=== PATIENT | male | born 1970 | race Caucasian/White ===

== ENCOUNTER 2017-02-04 13:41 | Emergency (ER) | payer SELFPAY ==
--- NOTE | 2017-02-04 14:02 | EDM.PDOC ---
ED HPI GENERAL MEDICAL PROBLEM - General Chief Complaint: Chest Pain Stated Complaint: CHEST PAINS/LIGHT HEADEDNESS Time Seen by Provider: 02/04/17 14:52 - History of Present Illness INITIAL COMMENTS - FREE TEXT/NARRATIVE: HISTORY AND PHYSICAL: History of present illness: Patient is 46-year-old white male history diabetes and hypertension presents with concern of left-sided chest pain he's had this for 24-48 hours states it's worse when his shirt touches this area of his chest he denies associated shortness of breath nausea vomiting or palpitations he states he has felt weaker he gets similar episode in the past and the last 2 years a complete cardiac workup including stress test that was negative he was treated for H. pylori. He denies melena hematochezia patient does complain of frequent eructation Review of systems: As per history of present illness and below otherwise all systems reviewed and negative. Past medical history: As per history of present illness and as reviewed below otherwise noncontributory. Surgical history: As per history of present illness and as reviewed below otherwise noncontributory. Social history: No reported history of drug or alcohol abuse. Family history: As per history of present illness and as reviewed below otherwise noncontributory. Physical exam: HEENT: Atraumatic, normocephalic, pupils reactive, negative for conjunctival pallor or scleral icterus, mucous membranes moist, throat clear, neck supple, nontender, trachea midline. Lungs: Clear to auscultation, breath sounds equal bilaterally, chest nontender. Heart: S1S2, regular, negative for clicks, rubs, or JVD. Abdomen: Soft, nondistended, nontender. Negative for masses or hepatosplenomegaly. Negative for costovertebral tenderness. Pelvis: Stable nontender. Genitourinary: Deferred. Rectal: Deferred. Extremities: Atraumatic, negative for cords or calf pain. Neurovascular unremarkable. Neuro: Awake, alert, oriented. Cranial nerves II through XII unremarkable. Cerebellum unremarkable. Motor and sensory unremarkable throughout. Exam nonfocal. Diagnostics: CBC CMP troponin PT INR chest x-ray EKG ultrasound right upper quadrant Therapeutics: IV O2 monitor Impression: #1 atypical chest pain #2 history diabetes #3 history of hypertension Definitive disposition and diagnosis as appropriate pending reevaluation and review of above. chest left side Pain Score (Numeric/FACES): 2 - Related Data Allergies Allergy/AdvReac Type Severity Reaction Status Date / Time Sulfa (Sulfonamide Allergy Other Verified 02/04/17 13:47 Antibiotics) Home Meds: Home Meds Losartan [Cozaar] 02/04/17 [History] metFORMIN [Glucophage XR] 02/04/17 [History] Past Medical History Cardiovascular History: Reports: Hypertension Gastrointestinal History: Reports: Helicobacter pylori Endocrine/Metabolic History: Reports: Diabetes, type II Social & Family History - Family History Family Medical History: Noncontributory - Tobacco Use Smoking Status *Q: Light Tobacco Smoker Years of Tobacco use: 10 Packs/Tins Daily: 1 - Recreational Drug Use Recreational Drug Use: No ED ROS GENERAL - Review of Systems Review Of Systems: ROS reveals no pertinent complaints other than HPI. ED EXAM, GENERAL - Physical Exam Exam: See Below (See dictated) Course - Vital Signs Last Recorded V/S: Last Vital Signs Temp 36.0 C 02/04/17 13:47 Pulse 79 02/04/17 13:47 Resp 18 02/04/17 13:47 BP 139/84 02/04/17 13:47 Pulse Ox 97 02/04/17 13:47 - Orders/Labs/Meds Orders: Active Orders 24 hr Category Date Time Status EKG Documentation Completion [RC] STAT Care 02/04/17 14:17 Active Abdomen Ltd [US] Stat Exams 02/04/17 13:55 Ordered Chest 1V Frontal [CR] Stat Exams 02/04/17 13:55 Taken Labs: Laboratory Tests 02/04/17 02/04/17 02/04/17 Range/Units 14:08 14:08 14:08 WBC 7.56 (4.0-11.0) K/uL RBC 5.09 (4.50-5.90) M/uL Hgb 13.8 (13.0-17.0) g/dL Hct 42.6 (38.0-50.0) % MCV 83.7 (80.0-98.0) fL MCH 27.1 (27.0-32.0) pg MCHC 32.4 (31.0-37.0) g/dL RDW Std Deviation 40.5 (28.0-62.0) fl RDW Coeff of Mikhail 13 (11.0-15.0) % Plt Count 178 (150-400) K/uL MPV 9.60 (7.40-12.00) fL Neut % (Auto) 74.5 (48.0-80.0) % Lymph % (Auto) 17.1 (16.0-40.0) % Hyde % (Auto) 7.3 (0.0-15.0) % Eos % (Auto) 0.8 (0.0-7.0) % Baso % (Auto) 0.3 (0.0-1.5) % Neut # (Auto) 5.6 (1.4-5.7) K/uL Lymph # (Auto) 1.3 (0.6-2.4) K/uL Hyde # (Auto) 0.6 (0.0-0.8) K/uL Eos # (Auto) 0.1 (0.0-0.7) K/uL Baso # (Auto) 0.0 (0.0-0.1) K/uL Nucleated RBC % 0.0 /100WBC Nucleated RBCs # 0 K/uL Sodium 138 (136-146) mmol/L Potassium 4.5 (3.5-5.1) mmol/L Chloride 106 (98-110) mmol/L Carbon Dioxide 23 (21-31) mmol/L BUN 20 (6.0-23.0) mg/dL Creatinine 1.0 (0.6-1.5) mg/dL Est Cr Clr Drug Dosing 77.29 mL/min Estimated GFR (MDRD) > 60.0 ml/min Glucose 129 H (60-110) mg/dL Calcium 9.3 (8.8-10.8) mg/dL Total Bilirubin 0.4 (0.1-1.5) mg/dL AST 18 (5-40) IU/L ALT 31 (8-54) IU/L Alkaline Phosphatase 70 (40-150) Troponin I < 0.10 (0.0-0.29) NG/ML Total Protein 6.9 (6.0-8.0) g/dL Albumin 4.4 (3.5-5.0) g/dL Globulin 2.5 (2.0-3.5) g/dL Albumin/Globulin Ratio 1.8 (1.3-2.8) Departure - Departure Time of Disposition: 14:52 Disposition: Home, Self-Care 01 Condition: good Clinical Impression: Atypical chest pain, Diabetes, Hypertension Forms: ED Department Discharge Additional Instructions: The following information is given to patients seen in the emergency department who are being discharged to home. This information is to outline your options for follow-up care. We provide all patients seen in our emergency department with a follow-up referral. The need for follow-up, as well as the timing and circumstances, are variable depending upon the specifics of your emergency department visit. If you don't have a primary care physician on staff, we will provide you with a referral. We always advise you to contact your personal physician following an emergency department visit to inform them of the circumstance of the visit and for follow-up with them and/or the need for any referrals to a consulting specialist. The emergency department will also refer you to a specialist when appropriate. This referral assures that you have the opportunity for followup care with a specialist. All of these measure are taken in an effort to provide you with optimal care, which includes your followup. Under all circumstances we always encourage you to contact your private physician who remains a resource for coordinating your care. When calling for followup care, please make the office aware that this follow-up is from your recent emergency room visit. If for any reason you are refused follow-up, please contact the [facility] emergency department at and asked to speak to the emergency department charge nurse. Followup primary medical doctor one to 2 days return as needed as discussed continue current medication - My Orders Last 24 Hours: My Active Orders 02/04/17 13:55 Abdomen Ltd [US] Stat Chest 1V Frontal [CR] Stat 02/04/17 14:17 EKG Documentation Completion [RC] STAT - Assessment/Plan Last 24 Hours: My Active Orders 02/04/17 13:55 Abdomen Ltd [US] Stat Chest 1V Frontal [CR] Stat 02/04/17 14:17 EKG Documentation Completion [RC] STAT
[2017-02-04 14:36] LABS: CHLORIDE,CL 106 mmol/L (98-110); SODIUM,NA 138 mmol/L (136-146)
[2017-02-04 15:16] VITALS: BP 123/86
--- NOTE | 2017-02-06 16:57 | CR ---
EXAM DATE: 02/04/17 PATIENT'S AGE: 46 Patient: YOLANDA LAMAS Facility: [place], [place] Site . Site : 1970 Study: XRay Chest [id number]/28/2017 2:16:10 PM Ordering Physician: Isis Worley Final Report: CHEST 1 VIEW AP INDICATION: Abdominal pain. COMPARISON: None. FINDINGS: Normal heart size and vascular pattern. Lungs are clear of focal opacities. No pneumothorax or pleural abnormality. IMPRESSION: 1. NEGATIVE AP CHEST. Dictated by Nicholas Horvath MD @ 02/04/2017 2:28:25 PM Dictated by: Nicholas Horvath MD @ 02/04/2017 14:28:32 (Electronic Signature) Report Signed by Proxy. [facility]ENTERLatrice
--- NOTE | 2017-02-06 17:04 | US ---
EXAM DATE: 02/04/17 PATIENT'S AGE: 46 Patient: YOLANDA LAMAS Facility: [place], [place] Site . Site : 1970 Study: US Abdomen [id number]/28/2017 3:33:03 PM Ordering Physician: Isis Worley Final Report: INDICATION: Abdominal pain. TECHNIQUE: Ultrasound abdomen limited. Sonographic images of the right upper quadrant were obtained using champagne-scale and color Doppler images. COMPARISON: None. FINDINGS: Liver: Mildly heterogeneous, echogenic liver parenchyma. Gallbladder: No stones or sludge. Normal wall thickness. No pericholecystic fluid. Common bile duct: 5 mm. Pancreas: Not well visualized. Right kidney: size cm. Normal echotexture and cortex. No masses, stones, or hydronephrosis. Vasculature: Proximal abdominal aorta and IVC are unremarkable. IMPRESSION: 1. Fatty infiltration of liver. 2. Normal gallbladder. 3. Pancreas not well visualized on this study, obscured by overlying bowel gas. Dictated by Nicholas Horvtah MD @ 02/04/2017 3:41:01 PM Dictated by: Nicholas Horvath MD @ 02/04/2017 15:41:10 (Electronic Signature) Report Signed by Proxy. [facility]
== END 2017-02-04 15:05 | disposition home or self-care (01) ==
LOC: MW.ED 13:41
DX: R07.89 Other chest pain (principal); E11.9 Type 2 diabetes mellitus without complications; I10 Essential (primary) hypertension; Z88.2 Allergy status to sulfonamides; Z79.84 Long term (current) use of oral hypoglycemic drugs
CPT/HCPCS: 36415; 71010; 71010-26; 76705; 76705-26; 80053; 84484; 85025; 93005; 99284; 99285-25